=== PATIENT | male | born 1995 | race Caucasian/White ===

== ENCOUNTER 2020-02-02 23:28 | Emergency (ER) | payer BC ==
[2020-02-02] MEDS ORDERED: FAMOTIDINE INJ/PF 20 MG/2 ML SDV IV ONE (23:36)
[2020-02-02] MEDS ORDERED: DIPHENHYDRAMINE HCL 50 MG/ML VIAL IV ONE (23:36)
[2020-02-02] MEDS ORDERED: EPINEPHRINE INJ/PF 1 MG/1 ML AMPULE IM ONE (23:36)
--- NOTE | 2020-02-02 23:40 | ER Document Report ---
ED Medical Screen (RME) - General Chief Complaint: ant bites Stated Complaint: BUG BITE ALLERGIC REACTION Time Seen by Provider: 02/02/20 23:35 Notes: Patient is a 25-year-old male who presents emergency department after getting bitten by fire ants. Patient states that he bit and then developed a rash. States that he has a history of asthma. Denies any shortness of breath, but states that his lip is a little more swollen than normal. Exam: Clear breath sounds noted throughout all lung collazo. Edema noted to lower lip. I have greeted and performed a rapid initial assessment of this patient. A comprehensive ED assessment and evaluation of the patient, analysis of test results and completion of medical decision making process will be conducted by an additional ED providers.
--- NOTE | 2020-02-03 02:46 | ER Document Report ---
ED Allergic Reaction - General Chief Complaint: Allergic Reaction Stated Complaint: BUG BITE ALLERGIC REACTION Time Seen by Provider: 02/02/20 23:35 Information source: Patient Notes: 25-year-old male with no previous medical problems presents emergency room after allergic reaction to multiple ant bites to his feet and hands. States that he just returned from a trip he was emptying the cooler when he realized he was standing in an ant pile. Patient states he was bitten multiple times on his feet and on his hands while he was trying to brush off the ants. States shortly after the bites he tried to take a shower and use some calamine lotion to alleviate the symptoms. Patient states his lip started swelling and feeling tight. He denies any shortness of breath or difficulty breathing. No history of allergic reaction to insect bites in the past. Tetanus is up-to-date. TRAVEL OUTSIDE OF THE [place] IN LAST 30 DAYS: No - Related Data Allergies/Adverse Reactions: No Known Allergies Allergy (Unverified 02/02/20 23:39) Past Medical History - General Information source: Patient - Social History Smoking Status: Never Smoker Frequency of alcohol use: Occasional Drug Abuse: None Family History: Reviewed & Not Pertinent Pulmonary Medical History: Reports: Hx Asthma Review of Systems - Review of Systems Constitutional: No symptoms reported EENT: Other - Lip swelling and tingling Cardiovascular: No symptoms reported Respiratory: No symptoms reported Musculoskeletal: No symptoms reported Skin: Rash Hematologic/Lymphatic: No symptoms reported Neurological/Psychological: No symptoms reported -: Yes All other systems reviewed and negative Physical Exam - Vital signs Vitals: Temp Pulse Resp BP Pulse Ox 97.6 F 99 20 178/84 H 100 02/02/20 23:38 02/02/20 23:38 02/02/20 23:38 02/02/20 23:38 02/02/20 23:38 - Notes Notes: VITAL SIGNS: Within normal limits. GENERAL: Mild acute distress, non-toxic appearance. HEAD: Normal with no signs of head trauma. EYES: PERRLA, EOMI, conjunctiva normal, no discharge. EARS: Hearing grossly intact. NOSE: Normal. THROAT: Oropharynx is normal. NECK: Normal range of motion, no tenderness, supple, no lymphadenopathy, No adenopathy, no JVD. CHEST: Clear breath sounds bilaterally. No wheezes, rales, or rhonchi. CARDIAC: Regular rate and rhythm. S1 and S2, without murmurs, gallops, or rubs. VASCULAR: No Edema. Peripheral pulses normal and equal in all extremities. ABDOMEN: Normal and soft with no tenderness, no masses or pulsatile masses. No organomegaly. Positive bowel sounds x4. No CVA tenderness noted bilaterally. GASTROINTESTINAL: Bowel sounds normal GENITOURINARY: Normal, No tenderness LYMPATHTIC: No lymphadenopathy noted. MUSCULOSKELETAL: Good range of motion of all major joints. Extremities without clubbing, cyanosis or edema. NEUROLOGICAL: Alert and oriented x 3. No focal sensory or strength deficits. Speech normal. Follows commands appropriately. PSYCHIATRIC: Normal Affect, judgement and mood. SKIN: Normal appearance with no rashes or lesions. Course - Re-evaluation Re-evalutation: 02/03/20 02:44 When seen by provider all symptoms have resolved. Patient is resting comfortably he is asymptomatic. No shortness of breath, no difficulty breathing. No longer feels like his lip is tingling or swelling. Hives have resolved. Counseled on need to follow-up outpatient with his primary care physician to discuss allergy testing and possible need for EpiPen. Can continue with Benadryl, Zyrtec, or Claritin for any itching. Patient was given strict return to the emergency room guidelines. Return for any new or worsening symptoms. All questions were answered. Patient verbalized understanding and agrees with plan of care. 02/03/20 07:37 - Vital Signs Vital signs: Temp Pulse Resp BP Pulse Ox 98.2 F 99 20 129/65 H 100 02/03/20 03:00 02/02/20 23:38 02/03/20 03:00 02/03/20 03:00 02/03/20 03:00 Discharge - Discharge Clinical Impression: Allergic reaction Qualifiers: Encounter type: initial encounter Qualified Code(s): T78.40XA - Allergy, unspecified, initial encounter Condition: Stable Disposition: HOME, SELF-CARE Instructions: Acute Allergic Reaction ([facility]) Additional Instructions: Benadryl, Zyrtec, or Claritin as needed for itching. Follow-up with your primary care physician for possible allergy testing and need for EpiPen. Return to the emergency room for any new or worsening symptoms.
[2020-02-03 03:03] VITALS: BP 129/65
== END 2020-02-03 03:07 | disposition home or self-care (01) ==
LOC: ER 23:28
DX: T78.40XA Allergy, unspecified, initial encounter (principal); R22.0 Localized swelling, mass and lump, head; W57.XXXA Bitten or stung by nonvenomous insect and other nonvenomous arthropods, initial encounter; J45.909 Unspecified asthma, uncomplicated
CPT/HCPCS: 99284; 96372; 96374; 96375; J1200; J0171; S0028